=== PATIENT | male | born 1980 | race Asian ===

== ENCOUNTER 2017-12-11 10:09 | Emergency (ER) | payer MEDICAID, OTHER ==
[~2017-12-11] VITALS: Ht 175.3 cm; Wt 90.7 kg
[2017-12-11] MEDS ORDERED: Albuterol/Ipratropium 3ml neb HHN ONE (10:45)
[2017-12-11 10:53] LABS: BASOPHILS % (AUTO) 1.3 % (0.0-2.0); EOSINOPHILS % (AUTO) 2.1 % (0.0-3.0); HEMATOCRIT 47.3 % (42.0-52.0); HEMOGLOBIN 16.3 G/DL (14.2-18.0); LYMPHOCYTES % (AUTO) 42.8 % (20.0-45.0); MEAN CORPUSCULAR VOLUME 94 FL (80-99); MONOCYTES % (AUTO) 9.6 % (1.0-10.0); NEUTROPHILS % (AUTO) 44.2 % (45.0-75.0); PLATELET COUNT 330 K/UL (150-450); RED BLOOD COUNT 5.05 M/UL (4.70-6.10); RED CELL DISTRIBUTION WIDTH 11.2 % (11.6-14.8); WHITE BLOOD COUNT 6.6 K/UL (4.8-10.8)
[2017-12-11 10:54] VITALS: BP 134/93
[2017-12-11 11:03] LABS: INR 0.9 (0.9-1.1); PARTIAL THROMBOPLASTIN TIME 27 SEC (23-33)
--- NOTE | 2017-12-11 11:52 | Diagnostic Imaging Report ---
Indication: Redness of breath Technique: XRAY Chest 1v Comparison: None Findings: Heart size and mediastinal contours are within normal limits given technique. There is no focal consolidation, pneumothorax or pleural effusion. Osseous structures demonstrate no acute abnormality. Impression: No radiographic evidence of acute cardiopulmonary disease.
[2017-12-11 12:19] LABS: CHLORIDE 102 MMOL/L (98-107); POTASSIUM 4.1 MMOL/L (3.5-5.1); SODIUM 140 MMOL/L (136-145)
[2017-12-11 12:26] LABS: ANION GAP 14 mmol/L (5-15); BLOOD UREA NITROGEN 14 mg/dL (7-18); CALCIUM 9.6 MG/DL (8.5-10.1); CARBON DIOXIDE 24 MMOL/L (21-32); CREATININE 1.1 MG/DL (0.55-1.30)
[2017-12-11 12:30] LABS: ALANINE AMINOTRANSFERASE 87 U/L (12-78); ALBUMIN 4.6 G/DL (3.4-5.0); ALBUMIN/GLOBULIN RATIO 1.3 (1.0-2.7); ALKALINE PHOSPHATASE 66 U/L (46-116); ASPARTATE AMINO TRANSFERASE 35 U/L (15-37); BILIRUBIN,TOTAL 0.6 MG/DL (0.2-1.0); CREATINE KINASE 144 U/L (26-308)
[2017-12-11 12:36] VITALS: BP 132/92
[2017-12-11] MEDS ORDERED: ADULT WAL-100 MG/5 M ORAL (12:54)
[2017-12-11] MEDS ORDERED: ALBUTEROL SULF8.5 GM INH (12:54)
[2017-12-11 13:00] LABS: CKMB 0.8 NG/ML (0.0-3.6)
[2017-12-11 13:11] VITALS: BP 132/92
--- NOTE | 2017-12-11 16:48 | Emergency Room Report ---
History of Present Illness General Chief Complaint: Chest Pain Source: Patient Present Illness HPI Patient is a 29-year-old male who presented after increased chest pain for several weeks. Patient gradual onset of symptoms. Nonproductive cough. Patient reported having increased chest congestion. Patient reports having pain to the upper abdomen and lower chest worse with coughing. He denies recent travel or fever. He denied any leg pain or swelling. Allergies: Coded Allergies: No Known Allergies (Unverified , 12/11/17) Patient History Past Medical History: see triage record Reviewed Nursing Documentation: PMH: Agreed, PSxH: Agreed Nursing Documentation-PMH Past Medical History: No Stated History Review of Systems All Other Systems: negative except mentioned in HPI Physical Exam Vital Signs Date Time Temp Pulse Resp B/P (MAP) Pulse Ox O2 Delivery O2 Flow Rate FiO2 12/11/17 10:15 98.2 76 18 148/95 97 Room Air 12/11/17 10:45 21 Sp02 EP Interpretation: reviewed, normal General Appearance: normal inspection, well appearing, no apparent distress, alert, GCS 15 Head: atraumatic ENT: normal ENT inspection, hearing grossly normal, normal voice Neck: normal inspection, full range of motion, supple, no bony tend Respiratory: normal inspection, lungs clear, normal breath sounds, no respiratory distress, no retraction, no wheezing Cardiovascular #1: regular rate, rhythm, no edema Gastrointestinal: normal inspection, normal bowel sounds, non tender, soft, no guarding, no hernia Genitourinary: no CVA tenderness Musculoskeletal: normal inspection, back normal, normal range of motion Neurologic: normal inspection, alert, oriented x3, responsive, beverage server III-XII nml as tested, speech normal Psychiatric: normal inspection, judgement/insight normal, mood/affect normal Skin: normal inspection, normal color, no rash Medical Decision Making Diagnostic Impression: Primary Impression: Bronchitis ER Course Patient presented for chest pain. Differential diagnosis included but was not limited to acute coronary syndrome, pulmonary embolism, pneumonia, aortic dissection, shingles, pneumothorax, aortic dissection, esophageal rupture, pericarditis. Because of complexity of patient's case laboratory testing and imaging studies were ordered. EKG interpreted by me showed normal sinus rhythm a rate of [address] or T wave changes. The patient was given a breathing treatment. D-dimer was negative. The patient has low risk for PE. The patient is advised to follow up with primary care doctor in 1-2 days for outpatient stress testing as needed. Patient is advised to return if any worsening condition or if any changes in status that are concerning. This report is dictated with [employer] dipper and baker software which may occasionally lead to discrepancies related to use of this software. Labs Test 12/11/17 10:45 White Blood Count 6.6 K/UL (4.8-10.8) Red Blood Count 5.05 M/UL (4.70-6.10) Hemoglobin 16.3 G/DL (14.2-18.0) Hematocrit 47.3 % (42.0-52.0) Mean Corpuscular Volume 94 FL (80-99) Mean Corpuscular Hemoglobin 32.3 PG (27.0-31.0) Mean Corpuscular Hemoglobin Concent 34.5 G/DL (32.0-36.0) Red Cell Distribution Width 11.2 % (11.6-14.8) Platelet Count 330 K/UL (150-450) Mean Platelet Volume 6.7 FL (6.5-10.1) Neutrophils (%) (Auto) 44.2 % (45.0-75.0) Lymphocytes (%) (Auto) 42.8 % (20.0-45.0) Monocytes (%) (Auto) 9.6 % (1.0-10.0) Eosinophils (%) (Auto) 2.1 % (0.0-3.0) Basophils (%) (Auto) 1.3 % (0.0-2.0) Prothrombin Time 9.8 SEC (9.30-11.50) Prothromb Time International Ratio 0.9 (0.9-1.1) Activated Partial Thromboplast Time 27 SEC (23-33) D-Dimer < 0.19 mg/L FEU Sodium Level 140 MMOL/L (136-145) Potassium Level 4.1 MMOL/L (3.5-5.1) Chloride Level 102 MMOL/L (98-107) Carbon Dioxide Level 24 MMOL/L (21-32) Anion Gap 14 mmol/L (5-15) Blood Urea Nitrogen 14 mg/dL (7-18) Creatinine 1.1 MG/DL (0.55-1.30) Estimat Glomerular Filtration Rate > 60 mL/min (>60) Glucose Level 111 MG/DL (74-106) Calcium Level 9.6 MG/DL (8.5-10.1) Total Bilirubin 0.6 MG/DL (0.2-1.0) Aspartate Amino Transf (AST/SGOT) 35 U/L (15-37) Alanine Aminotransferase (ALT/SGPT) 87 U/L (12-78) Alkaline Phosphatase 66 U/L (46-116) Total Creatine Kinase 144 U/L (26-308) Creatine Kinase MB 0.8 NG/ML (0.0-3.6) Creatine Kinase MB Relative Index 0.5 Troponin I 0.000 ng/mL (0.000-0.056) Pro-B-Type Natriuretic Peptide 19 pg/mL (0-125) Total Protein 8.2 G/DL (6.4-8.2) Albumin 4.6 G/DL (3.4-5.0) Globulin 3.6 g/dL Albumin/Globulin Ratio 1.3 (1.0-2.7) Last Vital Signs Date Time Temp Pulse Resp B/P (MAP) Pulse Ox O2 Delivery O2 Flow Rate FiO2 12/11/17 13:11 98.2 93 20 132/92 100 Room Air 21 Status: improved Disposition: HOME, SELF-CARE Condition: Stable Scripts Guaifenesin* (ADULT WAL-TUSSIN*) 100 Mg/5 Ml Liquid 10 ML ORAL Q4H, #120 ML Prov: Vitor Cabrales 12/11/17 Albuterol Sulfate* (ALBUTEROL SULFATE MDI*) 8.5 Gm Hfa.aer.ad 2 PUFF INH Q4H Y for cough/wheezing, #1 EA 0 Refills Prov: Vitor Cabrales 12/11/17 Patient Instructions: Nonspecific Chest Pain Vitor Cabrales Dec 11, 2017 16:48
--- NOTE | 2017-12-12 18:15 | Cardiology Report ---
APPROVED REPORT EKG Measurement Heart [id number] Normal sinus rhythm Normal ECG
== END 2017-12-11 13:12 | disposition home or self-care (01) ==
LOC: EMR 10:30
DX: J40 Bronchitis, not specified as acute or chronic (principal)
CPT/HCPCS: 36415; 71045; 80053; 82550; 82553; 83880; 84484; 85025; 85379; 85610; 85730; 93005; 94640; 94664; 99284; J7620

== ENCOUNTER 2018-07-12 18:43 | Emergency (ER) | payer MEDICAID ==
[~2018-07-12] VITALS: Ht 175.3 cm; Wt 88.5 kg
[~2018-07-12 18:43] MED LIST: ADULT WAL-100 MG/5 M ORAL; ALBUTEROL SULF8.5 GM INH
[2018-07-12 19:00] VITALS: BP 143/94
[2018-07-12] MEDS ORDERED: NKM (19:03)
[2018-07-12] MEDS ORDERED: Bacitracin Oint UD TOPIC ONE (19:15)
[2018-07-12] MEDS ORDERED: Norco 5mg/325mg tab ORAL ONE (19:15)
[2018-07-12] MEDS ORDERED: Lidocaine 2% 20mg/ml/Epi 0.005mg/ml 20ml vial INJ ONE (19:15)
--- NOTE | 2018-07-12 20:20 | Emergency Room Report ---
History of Present Illness General Chief Complaint: Laceration Source: Patient Present Illness HPI 38-year-old male presents to the emergency department complaining of laceration to the dorsum of the right hand times several hours. 6/10 in severity burning pain at site of open wound. Denies bony pain or tenderness. Patient reports that he is up-to-date with tetanus vaccinations. Patient reports that a tool box fell over and something cut his hand in the process. Patient states that he is right-hand dominant he denies taking blood thinning medications. Denies numbness tingling or loss of sensation or gross motor movements of the extremities, incontinence of bowel or bladder. Denies CP, Palpitations, LOC, AMS , dizziness, Changes in Vision, weakness or a sudden severe headache. Allergies: Coded Allergies: No Known Allergies (Unverified , 12/11/17) Patient History Past Medical History: see triage record Past Surgical History: none Pertinent Family History: none Immunizations: UTD Reviewed Nursing Documentation: PMH: Agreed; PSxH: Agreed Nursing Documentation-PMH Past Medical History: No Stated History Review of Systems All Other Systems: negative except mentioned in HPI Physical Exam Vital Signs Date Time Temp Pulse Resp B/P (MAP) Pulse Ox O2 Delivery O2 Flow Rate FiO2 07/12/18 19:00 98.1 77 18 143/94 95 Room Air 98.1 Sp02 EP Interpretation: reviewed, normal General Appearance: no apparent distress, alert, GCS 15, non-toxic Head: normocephalic, atraumatic Eyes: bilateral eye normal inspection, bilateral eye PERRL ENT: hearing grossly normal, normal voice Neck: full range of motion Respiratory: lungs clear, normal breath sounds, speaking full sentences Cardiovascular #1: regular rate, rhythm, no edema Musculoskeletal: back normal, gait/station normal, normal range of motion, non- tender, other - FROM, normal strength with finger extension against resistance. Neurologic: alert, oriented x3, responsive, motor strength/tone normal, sensory intact, speech normal, grossly normal Psychiatric: judgement/insight normal Skin: normal color, no rash, warm/dry, well hydrated, laceration - Dorsal right hand laceration approx 3 cm in length Procedures Laceration/Wound Repair Laceration/Wound Repair : Consent: Verbal Wound Location: upper extremity - right hand Wound's Depth, Shape: superficial, flap Wound Length (cm): 3 Wound Explored: clean Irrigated w/ Saline (ccs): 500 Anesthesia: Lidocaine w/ Epi Volume Anesthetic (ccs): 2 Wound Debrided: minimal Wound Repaired With: sutures Suture Size/Type: 4:0 Number of Sutures: 7 Layer Closure?: No Sterile Dressing Applied?: Yes Splint Applied?: No Sling Applied?: No Patient Tolerated: Well Complications: None Medical Decision Making PA Attestation Dr. Cabrales is my supervising Physician whom patient management has been discussed with. Diagnostic Impression: Primary Impression: Laceration ER Course 38-year-old male presents to the emergency department complaining of laceration to the dorsum of the right hand times several hours. 6/10 in severity burning pain at site of open wound. Denies bony pain or tenderness. Patient reports that he is up-to-date with tetanus vaccinations. Patient reports that a tool box fell over and something cut his hand in the process. Patient states that he is right-hand dominant he denies taking blood thinning medications. Denies numbness tingling or loss of sensation or gross motor movements of the extremities, incontinence of bowel or bladder. Denies CP, Palpitations, LOC, AMS , dizziness, Changes in Vision, weakness or a sudden severe headache. Ddx considered but are not limited to laceration, tendon injury, cellulitis, amputation Vital signs: are WNL, pt. is afebrile H&PE are most consistent with: Dorsal right hand laceration approx 3 cm in length ORDERS: none required at this time, the diagnosis is clinical. Pt. declines xray imaging, he does not feel that the injury was hard enough to break a bone. ED INTERVENTIONS: -Tetanus vaccine was administered as pt. vaccination status was unknown. - The wound was copiously irrigated with normal saline, and explored for foreign body for which no FB was found. - pt. is anesthetized with 1%lidocaine w. epi. - The wound was approximated and closed using 7 interrupted 4.0 Ethilon sutures. -Bacitracin and sterile dressing is applied. Discussed with patient: That we make every effort to approximate the laceration as best as we can so that scarring will be as cosmetically pleasing as possible with our limited cosmetic skill set in the Emergency dept. Regardless of our best efforts there will be scarring after laceration repair. The extent of scarring is unknown at this time. DISCHARGE: At this time pt. is stable for d/c to home. Will provide printed patient care instructions, and any necessary prescriptions. Care plan and follow up instructions have been discussed with the patient prior to discharge. Last Vital Signs Date Time Temp Pulse Resp B/P (MAP) Pulse Ox O2 Delivery O2 Flow Rate FiO2 07/12/18 19:00 98.1 77 18 143/94 95 Room Air 98.1 Disposition: HOME, SELF-CARE Condition: Stable Scripts Bacitracin/Polymyxin B Sulfate (BACITRACIN-POLYMYXIN OINTMENT) 28.35 Gm Oint...g. 1 APPLIC TP BID, #28.3 GM Prov: Shalonda Stubbs 07/12/18 Cephalexin* (KEFLEX*) 500 Mg Capsule 500 MG ORAL EVERY 12 HOURS for 7 Days, #14 CAP 0 Refills Prov: Shalonda Stubbs 07/12/18 [facility]REFERRING (PCP) Patient Instructions: Laceration Care, Adult Additional Instructions: Take medications as directed. Follow up with a Primary Care Provider in 3-5 days, even if your symptoms have resolved. --Please review list of primary care clinics, if you do not already have a primary care provider Return sooner to ED if new symptoms occur, or current symptoms become worse. - Please note that this Emergency Department Report was dictated using Index[employer] of environmental [employer] technology software, occasionally this can lead to erroneous entry secondary to interpretation by the dictation equipment. Shalonda Stubbs Jul 12, 2018 20:20
[2018-07-12] MEDS ORDERED: BACITRACIN-P28.35 GM TP (20:22)
[2018-07-12] MEDS ORDERED: CEPHALEXIN500 MG ORAL (20:22)
[2018-07-12 20:51] VITALS: BP 135/82
[2018-07-12 20:55] VITALS: BP 135/81
== END 2018-07-12 20:58 | disposition home or self-care (01) ==
LOC: EMR 19:25
DX: S61.411A Laceration without foreign body of right hand, initial encounter (principal); W22.8XXA Striking against or struck by other objects, initial encounter; Y93.89 Activity, other specified; Y92.9 Unspecified place or not applicable
CPT/HCPCS: 12002; 99283; Z7502

== ENCOUNTER 2018-07-22 08:31 | Emergency (ER) | payer MEDICAID ==
[~2018-07-22] VITALS: Ht 175.3 cm; Wt 88.9 kg
[~2018-07-22 08:31] MED LIST changes: +BACITRACIN-P28.35 GM TP; +CEPHALEXIN500 MG ORAL; +NKM
[2018-07-22] MEDS ORDERED: AUGMENTIN 875-1 EAC1 ORAL (09:13)
--- NOTE | 2018-07-22 09:13 | Diagnostic Imaging Report ---
EXAM: XR Right Hand Complete, 3 or More Views CLINICAL HISTORY: TRAUMA TECHNIQUE: Frontal, lateral and oblique views of the right hand. COMPARISON: No relevant prior studies available. FINDINGS: Bones/joints: Subtle cortical irregularity along the distal dorsal aspect of the third digit metacarpal, noted only on the lateral view. Visualized osseous structures otherwise appear intact. Joint spaces appear unremarkable. Soft tissues: Dorsal soft tissue swelling overlying the MCP joints, with suggestion of a soft tissue laceration. IMPRESSION: 1. Dorsal soft tissue swelling overlying the MCP joints, with suggestion of a soft tissue laceration. 2. Subtle cortical irregularity along the distal dorsal aspect of the third digit metacarpal. This is nonspecific and likely to be a normal osseous protuberance however cannot completely exclude a subtle bony avulsion injury. [employer] 07/22/18 09:08 Call From [facility] Sandro Pritchett MD on 07/22 09:06 (-07: 00)
[2018-07-22 09:19] VITALS: BP 125/82
--- NOTE | 2018-07-22 09:50 | Emergency Room Report ---
History of Present Illness General Chief Complaint: Wound Recheck/Suture Removal Source: Patient Present Illness HPI Patient presents with recheck of his hand injury and laceration which was repaired This was approximately last week Patient reports that he has been able to move the hand well Denies any discharge Denies any fevers or chills He reports taking one antibiotic twice a day Denies any elbow pain Allergies: Coded Allergies: No Known Allergies (Unverified , 12/11/17) Patient History Past Medical History: see triage record Pertinent Family History: none Reviewed Nursing Documentation: PMH: Agreed; PSxH: Agreed Nursing Documentation-PMH Past Medical History: No Stated History Review of Systems All Other Systems: negative except mentioned in HPI Physical Exam Vital Signs Date Time Temp Pulse Resp B/P (MAP) Pulse Ox O2 Delivery O2 Flow Rate FiO2 07/22/18 08:37 97.5 68 14 125/82 95 Room Air 97.5 Sp02 EP Interpretation: reviewed, normal General Appearance: well appearing, no apparent distress Head: normocephalic, atraumatic ENT: normal pharynx, no angioedema Neck: supple Respiratory: lungs clear Musculoskeletal: other - Evaluation over the right hand just at the distal metacarpal area, reveals evidence of semicircular laceration with sutures in place. There is a mild raised appearance of the area. No obvious erythema patient able to flex and extend without any discomfort Neurologic: alert, oriented x3, responsive Skin: other - Closer exam of the lacerated area reveals mild swelling noted but no obvious fluctuance. Sutures in place without any erythema Lymphatic: no adenopathy Procedures Additional Procedure Procedure Narrative Suture removal: Area was cleansed and prepped, I did remove 2 sutures. At this time there is evidence of the laceration is still healing. Other sutures are left in place Medical Decision Making Diagnostic Impression: Primary Impression: wound check Additional Impression: partial suture removal ER Course The area in question was concerning. On evaluation there was no previous x-ray so x-ray was obtained today I did contact radiology regarding questionable change in the lateral view however it was discussed that this is likely a normal variant. Patient was placed on Augmentin I believe that he is a candidate for hand specialty follow-up and reevaluation There are no signs of any tenosynovitis at this time or deep pocket abscess patient to flex and extend without any discomfort And will follow closely Other X-Ray Diagnostic Results Other X-Ray Diagnostic Results : X-Ray ordered: Right hand # of Views/Limited Vs Complete: 3 View Indication: Pain EP Interpretation: Yes Interpretation: no dislocation, other - Questionable change in the dorsal aspect of the metacarpal, no obvious fracture, soft tissue swelling is noted Impression: Other - No obvious acute process, soft tissue changes Electronically Signed by: Sandro Pritchett DO Last Vital Signs Date Time Temp Pulse Resp B/P (MAP) Pulse Ox O2 Delivery O2 Flow Rate FiO2 07/22/18 09:19 97.5 14 125/82 95 Room Air 97.5 07/22/18 08:37 68 Status: improved Disposition: HOME, SELF-CARE Condition: Improved Scripts Amoxicillin/Potassium Clav 875-125* (AUGMENTIN 875-125 TABLET*) 1 Each Tablet 1 TAB ORAL TWICE A DAY, #14 TAB Prov: Sandro Pritchett DO 07/22/18 Referrals: [facility],REFERRING (PCP) EMMA BROOKS M.D. Patient Instructions: Wound Check Additional Instructions: Please note that the area shows some questionable early signs of possible infection. It is recommended for you to follow-up with a primary physician/ hand specialty. We have provided a hand specialist however secondary to insurance considerations primary physician referral would be most appropriate. 2 sutures were removed. At this time there is evidence of continued healing process and therefore the remainder of sutures have been left in place as to not cause any further dehiscence. Please note that this report is being documented using [employer] technology. This can lead to erroneous entry secondary to incorrect interpretation by the dictating instrument. Sandro Pritchett DO Jul 22, 2018 09:50
== END 2018-07-22 09:19 | disposition home or self-care (01) ==
LOC: EMR 08:42
DX: S61.411D Laceration without foreign body of right hand, subsequent encounter (principal)
CPT/HCPCS: 99283

== ENCOUNTER 2019-06-25 14:12 | Emergency (ER) | payer BC, MEDICAID, OTHER ==
[~2019-06-25] VITALS: Ht 177.8 cm; Wt 87.1 kg
[~2019-06-25 14:12] MED LIST changes: +AUGMENTIN 875-1 EAC1 ORAL
[2019-06-25] MEDS ORDERED: MELOXICAM7.5 MG PO (14:28)
[2019-06-25 14:35] VITALS: BP 130/90
--- NOTE | 2019-06-25 14:35 | NUR ---
ED Nurse Note: pt walkd in due to pain on the right thumb, pt stated he twisted on the right foot and landed on the left thumb, seen by rafaela lindo. will continue to monitor.
--- NOTE | 2019-06-25 14:38 | Emergency Room Report ---
History of Present Illness General Chief Complaint: Upper Extremity Injury Source: Patient Present Illness HPI 39 Year old male presents with left thumb pain, after falling and hurting his left thumb, he states that he was trying to break his fall event occurred yesterday, he endorses sharp achy pain severity is moderate, aggravated with movement alleviated with rest, no radiation. Presents for evaluation. Allergies: Coded Allergies: No Known Allergies (Unverified , 12/11/17) Patient History Past Medical History: see triage record Reviewed Nursing Documentation: PMH: Agreed; PSxH: Agreed Nursing Documentation-PMH Past Medical History: No History, Except For Hx Hypertension: Yes Review of Systems All Other Systems: negative except mentioned in HPI Physical Exam Vital Signs Date Time Temp Pulse Resp B/P (MAP) Pulse Ox O2 Delivery O2 Flow Rate FiO2 06/25/19 14:24 98.2 71 18 130/90 (103) 99 Room Air Sp02 EP Interpretation: reviewed, normal General Appearance: well appearing, no apparent distress, alert Head: normocephalic, atraumatic Eyes: bilateral eye PERRL, bilateral eye EOMI ENT: uvula midline, moist mucus membranes Neck: supple, thyroid normal, supple/symm/no masses Respiratory: lungs clear, no respiratory distress, no retraction, no accessory muscle use Cardiovascular #1: normal peripheral pulses, regular rate, rhythm, no edema, no gallop, no murmur Gastrointestinal: non tender, soft, no guarding, no rebound Musculoskeletal: other - Left upper externally: 2+ radial pulses, radial median ulnar nerve intact, tenderness to palpation left thumb base, no snuffbox tenderness, no obvious deformity, no soft tissue swelling, Neurologic: alert, oriented x3 Psychiatric: mood/affect normal Skin: no rash, warm/dry Medical Decision Making Diagnostic Impression: Primary Impression: Left thumb sprain ER Course 39-year-old male presents with normal neurovascular exam, no evidence of fracture, patient most likely with a thumb strain Patient given a removable thumb spica, disposition home with return precautions Patient counseled to follow-up with ortho Other X-Ray Diagnostic Results Other X-Ray Diagnostic Results : X-Ray ordered: left hand # of Views/Limited Vs Complete: 3 View Indication: Pain EP Interpretation: Yes Interpretation: no fractures Impression: No acute disease Electronically Signed by: James Grider MD Last Vital Signs Date Time Temp Pulse Resp B/P (MAP) Pulse Ox O2 Delivery O2 Flow Rate FiO2 06/25/19 14:24 98.2 71 18 130/90 (103) 99 Room Air Disposition: HOME, SELF-CARE Condition: Stable Scripts Methocarbamol* (ROBAXIN-750*) 750 Mg Tablet 750 MG PO TID, #21 TAB 0 Refills Prov: James Grider MD 06/25/19 Referrals: [facility] Patient Instructions: Thumb Sprain Additional Instructions: The patient was provided with discharge instructions, notified to follow-up with a primary care doctor and or specialist in the next 24-48 hours, and to return to the ED if they have worsening of their symptoms. Please note that this report is being documented using [employer] technology. This can lead to erroneous entry secondary to incorrect interpretation by the dictating instrument. James Grider MD Jun 25, 2019 14:38
[2019-06-25] MEDS ORDERED: Acetaminophen 500mg (ES) tab ORAL ONE (14:45)
--- NOTE | 2019-06-25 14:45 | NUR ---
ED Nurse Note: xray on bedside
--- NOTE | 2019-06-25 14:48 | NUR ---
ED Nurse Note: pt medicated as ordered and pt able to tolerate po meds. will continue to monitor
[2019-06-25] MEDS ORDERED: ROBAXIN-750750 MG PO (15:22)
[2019-06-25 15:28] VITALS: BP 130/90
--- NOTE | 2019-06-25 15:28 | NUR ---
ER DISCHARGE NOTE: Patient is cleared to be discharged per ERMD, pt is aox4, on room air, with stable vital signs. pt was given dc and prescription instructions, pt was able to verbalize understanding, pt id band removed without complications. pt is able to ambulate with steady gait. pt took all belongings.
--- NOTE | 2019-06-25 17:02 | Diagnostic Imaging Report ---
Indication: Pain, trauma Technique: 3 views left hand Comparison: None Findings: No acute fractures. No dislocations. The joint spaces are preserved. Impression: Negative
== END 2019-06-25 15:28 | disposition home or self-care (01) ==
LOC: EMR 14:53
DX: S63.602A Unspecified sprain of left thumb, initial encounter (principal); W19.XXXA Unspecified fall, initial encounter; Y93.9 Activity, unspecified; Y92.9 Unspecified place or not applicable; I10 Essential (primary) hypertension
CPT/HCPCS: 99283